=== PATIENT | female | born 1995 | race Caucasian/White ===

== ENCOUNTER 2016-02-10 22:56 | Emergency (ER) | payer OTHER | END 2016-02-10 23:43 | disposition left against medical advice (07) | LOC: ER 22:56 | DX: Z53.21 Procedure and treatment not carried out due to patient leaving prior to being seen by health care provider (principal) | CPT/HCPCS: 99281 ==

== ENCOUNTER 2016-02-11 23:08 | Emergency (ER) | payer OTHER | END 2016-02-12 01:53 | disposition home or self-care (01) | LOC: ER 23:08 | CPT/HCPCS: 71020; 87804; 87880 ==